=== PATIENT | male | born 1995 | race African-American/Black ===

== ENCOUNTER 2018-10-03 19:31 | Emergency (ER) | payer MEDICAID ==
[~2018-10-03] VITALS: Ht 172.7 cm; Wt 100.0 kg
[2018-10-03] MEDS ORDERED: IBUPROFEN 600MG TABLET PO STA (20:51)
[2018-10-03 21:26] LABS: BASOPHILS % 0.7 % (0.0-2.0); EOSINOPHILS % 2.4 % (0.0-5.0); HEMATOCRIT. 41.6 % (42.0-52.0); HEMOGLOBIN. 14.3 g/dL (14.0-18.0); LYMPHOCYTES % 40.4 % (20.0-50.0); MEAN CORPUSCULAR VOLUME 84.2 fL (80.0-94.0); MEAN PLATELET VOLUME 7.1 fl (7.4-10.4); MONOCYTES % 10.5 % (2.0-8.0); PLATELET 266 x1000/uL (130-400); RED BLOOD CELL COUNT 4.95 mill/uL (4.7-6.1); RED CELL DISTRIBUTION WIDTH 13.9 % (11.6-14.6)
[2018-10-03 21:30] LABS: CHLORIDE 106 mEq/L (98-107)
[2018-10-03 21:34] LABS: ETHANOL BLOOD < 10 mg/dL
[2018-10-03 22:30] VITALS: BP 137/90
== END 2018-10-03 22:57 ==
LOC: ER 19:31
DX: R07.89 Other chest pain (principal); Z88.0 Allergy status to penicillin; Z88.6 Allergy status to analgesic agent
CPT/HCPCS: 36415; 71045; 80320; 93005; 99285; G0480

== ENCOUNTER 2018-10-24 19:09 | Emergency (ER) | payer MEDICAID ==
[~2018-10-24] VITALS: Ht 172.7 cm; Wt 100.0 kg
[2018-10-24] MEDS ORDERED: ONDANSETRON HCL 4MG/2ML INJ IV ONE (21:15)
[2018-10-24] MEDS ORDERED: MORPHINE SULFATE 4 MG/ML CPJ (NOT FOR IM USE) IV ONE (21:15)
[2018-10-24 21:32] LABS: BASOPHILS % 0.3 % (0.0-2.0); EOSINOPHILS % 0.8 % (0.0-5.0); HEMATOCRIT. 42.2 % (42.0-52.0); HEMOGLOBIN. 14.4 g/dL (14.0-18.0); MEAN CORPUSCULAR HEMOGLOBIN 28.9 pg (28.0-32.0); MEAN CORPUSCULAR VOLUME 84.5 fL (80.0-94.0); MEAN PLATELET VOLUME 7.3 fl (7.4-10.4); MONOCYTES % 9.2 % (2.0-8.0); NEUTROPHILS % 75.7 % (40.0-76.0); PLATELET 253 x1000/uL (130-400); RED CELL DISTRIBUTION WIDTH 13.8 % (11.6-14.6)
[2018-10-24 21:37] LABS: CHLORIDE 107 mEq/L (98-107)
[2018-10-25 01:30] VITALS: BP 123/71
== END 2018-10-25 01:30 | disposition home or self-care (01) ==
LOC: ER 19:09
DX: K52.9 Noninfective gastroenteritis and colitis, unspecified (principal); F31.9 Bipolar disorder, unspecified; F20.9 Schizophrenia, unspecified; Z88.0 Allergy status to penicillin; Z88.8 Allergy status to other drugs, medicaments and biological substances
CPT/HCPCS: 36415; 80053; 83690; 85025; 96374; 96375; 99283; J2270; J2405